=== PATIENT | male | born 1995 | race Caucasian/White ===

== ENCOUNTER 2016-09-17 23:58 | Emergency (ER) | payer OTHER ==
[~2016-09-17] VITALS: Ht 185.4 cm; Wt 97.8 kg
[2016-09-18 00:09] VITALS: BP 174/72; PULSE 72; RESP 16; TEMP 98.3; O2SAT 100
[2016-09-18] MEDS ORDERED: LIDOCAINE HCL 1% 50 ML VIAL ONE (04:27)
[2016-09-18] MEDS ORDERED: LIDOCAINE 1%/EPINEPHrine 1:100,000 SOLN 20 ML VIAL INFIL ONE (04:30)
[2016-09-18] MEDS ORDERED: TETANUS/DIPHTHERIA TOXOID ADULT 0.5 ML VIAL IM ONE (04:30)
--- NOTE | 2016-09-18 05:01 | PD ---
HPI Chief Complaint: Laceration/Skin Injury Time Seen by Provider: 04:21 Travel History International Travel<30 days: No Contact w/Intl Traveler<30days: No Traveled to known affect area: No History of Present Illness HPI The patient is a 21-year-old male that lacerated his left elbow while working at [employer] at 8:30 PM tonight. His last tetanus shot was over 10 years ago. He denies any other injury. The laceration was on a metal stove. [facility] Past Medical History Medical History: Denies Significant Hx Tetanus Vaccination: > 5 Years Influenza Vaccination: No Past Surgical History Cholecystectomy: Yes (AGE 13) Social History Alcohol Use: Yes ("2 OR 3 A NIGHT") Tobacco Use: Yes (1/2 PPD) Substance Use: Yes (WEED) Allergies-Medications (Allergen,Severity, Reaction): Coded Allergies: No Known Allergies (Unverified , 09/18/16) Reported Meds & Prescriptions Reported Meds & Active Scripts Active No Active Prescriptions or Reported Medications Review of Systems Except as stated in HPI: all other systems reviewed are Neg Physical Exam Narrative GENERAL: Well-nourished, well-developed patient in minimal apparent distress with his left arm laceration. His vital signs show blood pressure 1 7472 but otherwise normal. SKIN: Focused skin assessment warm/dry. There is a 2.5 cm laceration on the left elbow which is not associated with any tendons, nerves or major vessels. HEAD: Normocephalic. EYES: No scleral icterus. No injection or drainage. NECK: Supple, trachea midline. No JVD or lymphadenopathy. CARDIOVASCULAR: Regular rate and rhythm without murmurs, gallops, or rubs. RESPIRATORY: Breath sounds equal bilaterally. No accessory muscle use. GASTROINTESTINAL: Abdomen soft, non-tender, nondistended. MUSCULOSKELETAL: No cyanosis, or edema. BACK: Nontender without obvious deformity. No CVA tenderness. Data Data Last Documented VS Vital Signs Date Time Temp Pulse Resp B/P Pulse Ox O2 Delivery O2 Flow Rate FiO2 09/18/16 00:09 98.3 72 16 174/72 100 Orders Lidocai-Epi 1%-1:100,000 Inj (Xylocaine- (09/18/16 04:30) Tetanus/Diphtheria Tox Adult (Tetanus/Di (09/18/16 04:30) Lidocaine 1% Inj (50 Ml) (Xylocaine 1% I (09/18/16 04:27) MDM Medical Decision Making Medical Screen Exam Complete: Yes Emergency Medical Condition: Yes Medical Record Reviewed: Yes Differential Diagnosis Laceration requiring suturing, laceration not requiring suturing, laceration involving tendons, nerves and major vessels Narrative Course The patient has a laceration that requires suturing but is not involving any tendons, nerves or major vessels. Procedures Procedure Narrative The area was prepped with Betadine. It was then infiltrated with lidocaine with epinephrine. Under sterile technique, the laceration was sutured with 3 vertical mattress sutures interrupted. No deep sutures were necessary. Diagnosis Primary Impression: Laceration of left upper arm Additional Instructions: As we discussed, keep wound clean and dry and return in approximately 10-12 days for suture removal. If you have any problems return immediately for recheck. Med/Other Pt SpecificInfo: No Change to Meds Scripts No Active Prescriptions or Reported Meds Disposition: 01 DISCHARGE HOME Condition: Stable Shalom Hernández MD Sep 18, 2016 05:00
== END 2016-09-18 05:09 | disposition home or self-care (01) ==
LOC: PHED 23:58
DX: S51.012A Laceration without foreign body of left elbow, initial encounter (principal); Z23 Encounter for immunization; F17.210 Nicotine dependence, cigarettes, uncomplicated; W26.9XXA Contact with unspecified sharp object(s), initial encounter; Y92.511 Restaurant or cafe as the place of occurrence of the external cause; Y99.0 Civilian activity done for income or pay
CPT/HCPCS: 12002; 90471; 90714